=== PATIENT | female | born 1995 | race Caucasian/White ===

== ENCOUNTER → 2019-11-30 11:52 | Outpatient (BNVA) | payer OTHER, SELFPAY | PROVIDERS: Family Provider Family Medicine; PCP Family Medicine; Visit Provider Nurse Practitioner Women's Health | DX: Z34.90 Encounter for supervision of normal pregnancy, unspecified, unspecified trimester (principal) | CPT/HCPCS: 81003; 82950; 84315; 85025 ==

== ENCOUNTER → 2019-12-18 09:42 | Outpatient (BNVA) | payer OTHER, SELFPAY | PROVIDERS: Family Provider Family Medicine; PCP Family Medicine; Visit Provider Obstetrics & Gynecology | DX: Z01.818 Encounter for other preprocedural examination (principal) | CPT/HCPCS: 84315 ==

== ENCOUNTER → 2019-12-29 13:58 | Outpatient (BNVA) | payer OTHER, SELFPAY | PROVIDERS: Family Provider Family Medicine; PCP Family Medicine; Visit Provider Obstetrics & Gynecology | DX: Z01.89 Encounter for other specified special examinations (principal) | CPT/HCPCS: 84315 ==

== ENCOUNTER → 2020-01-12 10:18 | Outpatient (BNVA) | payer OTHER, SELFPAY | PROVIDERS: Family Provider Family Medicine; PCP Family Medicine; Visit Provider Obstetrics & Gynecology | DX: Z01.89 Encounter for other specified special examinations (principal) | CPT/HCPCS: 84315 ==

== ENCOUNTER → 2020-01-30 08:52 | Outpatient (BNVA) | payer OTHER, SELFPAY | PROVIDERS: Family Provider Family Medicine; PCP Family Medicine; Visit Provider Obstetrics & Gynecology | DX: Z34.03 Encounter for supervision of normal first pregnancy, third trimester (principal) | CPT/HCPCS: 84315; 87081 ==

== ENCOUNTER → 2020-02-06 08:21 | Outpatient (BNVA) | payer OTHER, SELFPAY | PROVIDERS: Family Provider Family Medicine; PCP Family Medicine; Visit Provider Obstetrics & Gynecology | DX: Z01.89 Encounter for other specified special examinations (principal) | CPT/HCPCS: 84315 ==

== ENCOUNTER → 2020-02-13 08:52 | Outpatient (BNVA) | payer OTHER, SELFPAY | PROVIDERS: Family Provider Family Medicine; PCP Family Medicine; Visit Provider Obstetrics & Gynecology | DX: Z46.89 Encounter for fitting and adjustment of other specified devices (principal) | CPT/HCPCS: 84315 ==

== ENCOUNTER 2020-02-19 21:52 | Inpatient (IN) | payer OTHER, SELFPAY ==
[2020-02-19 22:00] VITALS: RESP 16; TEMP 36.8
[2020-02-19 22:17] VITALS: BP 171/73; PULSE 109
[2020-02-19 22:26] VITALS: BP 132/76; PULSE 109
[2020-02-19 23:14] VITALS: BMI 38.9
[2020-02-20] VITALS (46 sets, daily range): BP systolic 0–185; BP diastolic 0–95; PULSE 25–133; RESP 16; TEMP 36.8; O2SAT 87–100
--- NOTE | 2020-02-20 02:39 | PC.NURSE ---
25 MCG CYTOTEC PLACED VAGINALLY AT 0103 02/20/20 BY THIS NURSE PER DR ROSALIA MCELROY.
--- NOTE | 2020-02-20 02:40 | PC.NURSE ---
LACTATED RINGERS FLUID BOLUS INITIATED AT 0125 02/20/[address] LINDSEY'S ORDER IN PERIPHERAL IV RIGHT AC. FLUIDS RUNNING AT 999MLS/HR.
--- NOTE | 2020-02-20 02:41 | PC.NURSE ---
LACTATED RINGERS RATE CHANGE, RUNNING AT 75 MLS/HR STARTING AT 0157 02/20/[address] LINDSEY'S ORDERS FOLLOWING FLUID BOLUS COMPLETION.
--- NOTE | 2020-02-20 05:20 | PC.NURSE ---
250 ML/HR BOLUS OF LR INITIATED AT 0448 02/20/[address] LINDSEY ORDER VIA PERIPHERAL IV IN RIGHT AC.
--- NOTE | 2020-02-20 05:21 | PC.NURSE ---
NEW BAG OF LR HUNG AT 0505 02/20/20, AND RATE OF INFUSION CHANGED TO 125 ML/HR PER DR LINDSEY ORDER.
--- NOTE | 2020-02-20 05:21 | PC.NURSE ---
INFUSION RATE OF LR CHANGED TO 999ML/HR AT 0515 02/20/20 FOR PREPARATION OF EPIDURAL PER PROTOCOL.
--- NOTE | 2020-02-20 06:09 | ANES.PREANE2 ---
Pre-Anesthetic Assessment Pre-Anesthetic Assessment: Height/Weight: Height 1.75 m Weight 119.748 kg Temp Pulse Resp BP 98.3 F 82 16 130/57 02/20/20 04:20 02/20/20 06:01 02/20/20 04:20 02/20/20 06:01 Preop Diagnosis: labor Proposed Procedure: epidural Was Beta Francisco Javier taken within 24 hours: N/A Last intake: solid at 0300 Last Intake: 03:00 Social: Social History: No alcohol and No tobacco Exam: Pre-Anes Outpt Exam: alert, oriented x 3, clear to auscultation bilaterally and regular rate & rhythm Airway: Submandibular: WNL Cervical ROM: WNL MP: 2 Dentition: Full Pulmonary: Pulmonary: None reported CV/HEM: CV/HEM: None reported : : None reported Hepatic: Hepatic: None reported GI: GI: GERD Musc/skel: Musc/skel: None reported Neuropsych: Neuropsych: Anxiety and WHITT (monthly) Anesthetic Plan: ASA status: 2 Anesthesia: Anesthesia Evaluation, Eval. 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
--- NOTE | 2020-02-20 06:54 | ANES.PROC ---
Anesthesia Procedures Procedure/Date: 02/20/20 Epidural: Time Out Performed: Yes Consents Signed: Procedure Consent and NPO Consent Consent: requested by attending/covering physician and from patient Lumbar Level: L3-L4 Epidural position: sitting Epidural procedure: sterile prep of area (betadine), 1% lidocaine to numb the area (3ml), 18 g needle, neg for paresthesia, test dose given, 1.5% xylocaine 1:200k epi (5ml), 0.2% Ropivacaine bolus ml (5ml), placed PCEA, no systemic response, sterile dressing applied, L.U.D. no apparent complications and 0.2% Ropiavacaine @ mls/hr (13ml/hr) Other Information: Spoke with pt on risk and benefits of epidural epidural with consent signed. Pt tolerated procedure well and comfortable after
--- NOTE | 2020-02-20 07:35 | PC.NURSE ---
NEW BAG OF LR HUNG AT 0615, SET TO INFUSE AT 125 MLS/HR.
[2020-02-21 11:03] LABS: Hematocrit 33.1 % (37.0-47.0); Hemoglobin 11.1 g/dL (11.5-15.3); Lymphocytes % 19.1 %; Mean Corpuscular HGB Conc 33.5 g/dL (30.0-36.0); Mean Corpuscular Hemoglobin 30.4 pg (28.0-34.0); Mean Corpuscular Volume 90.7 fL (81-99); Mean Platelet Volume 9.7 fL (7.4-10.4); Monocytes % 7.2 %; Neutrophils % 71.5 %; Platelet Count 419 10^3/cmm (130-400); Red Blood Count 3.65 10^6/uL (4.1-5.3); Red Cell Distribution Width 13.3 % (12.1-15.1)
[2020-02-21 11:04] LABS: Basophils % 0.2 %
[2020-02-21 11:05] LABS: Eosinophils # 0.1 10^3/uL (0.0-0.8); Lymphocytes # 2.3 10^3/uL (0.8-4.8); Monocytes # 0.9 10^3/uL (0.2-0.9); Neutrophils # 8.6 10^3/uL (1.8-7.7)
== END 2020-02-20 07:16 | disposition home or self-care (01) | DRG 807 ==
PROVIDERS: Admitting Provider Obstetrics & Gynecology; Family Provider Family Medicine; PCP Family Medicine; Visit Provider Obstetrics & Gynecology
DX: O99.344 Other mental disorders complicating childbirth (principal); Z37.0 Single live birth; F41.9 Anxiety disorder, unspecified; O99.284 Endocrine, nutritional and metabolic diseases complicating childbirth; K21.9 Gastro-esophageal reflux disease without esophagitis; Z3A.39 39 weeks gestation of pregnancy; O26.53 Maternal hypotension syndrome, third trimester; O76 Abnormality in fetal heart rate and rhythm complicating labor and delivery; O69.81X0 Labor and delivery complicated by cord around neck, without compression, not applicable or unspecified; O70.0 First degree perineal laceration during delivery
CPT/HCPCS: 36415; 59025; 85025

== ENCOUNTER 2020-02-20 07:31 | Inpatient (IN) | payer OTHER, SELFPAY ==
[2020-02-20] VITALS (74 sets, daily range): BP systolic 0–149; BP diastolic 0–84; PULSE 63–98; RESP 16–18; TEMP 36.6–37; O2SAT 97–99
--- NOTE | 2020-02-20 07:35 | PC.NURSE ---
4 mg Zofran given IV push for nausea by this nurse at 0709.
--- NOTE | 2020-02-20 07:50 | PC.NURSE ---
SEE OTHER DOCUMENTATION FOR THIS PT LISTED UNDER OTHER ACCOUNT NUMBER, CHARTED ON 02/19/20 AT 2152 UNTIL 02/20/20 AT 0715; [id number]
--- NOTE | 2020-02-20 08:04 | PC.NURSE ---
Dr. Corcoran at bedside at this time. SVE performed by Dr. Corcoran 4-5cm, 80%, -1 station. AROM with scant clear fluid. Received order to start high dose pitocin. Amie Dunn RN
--- NOTE | 2020-02-20 08:20 | PC.NURSE ---
Pitocin started at this time at 2 miliunits/hr per high dose pitocin protocol. Pitocin verified by Joan Penaloza RN. Amie Dunn RN
--- NOTE | 2020-02-20 08:38 | PC.NURSE ---
Pitocin titrated to 4 miliunits/hr per high dose pitocon protocol. Verified by PABLITO Gaxiola RN
--- NOTE | 2020-02-20 08:44 | PC.NURSE ---
Nurse entered room to find FHT. FHT were audibly increased. This nurse called for help. Joan Penaloza RN came in and helped reposition pt. Pt was repositioned left lateral, with no improvement. At 0846 pitocin was titrated down to 2 miliunits. Pt was repositioned right lateral and 15 L O2 was administered via non-rebreather mask. LR fluid bolus was initiated and pitocin was turned off. Dr. Corcoran entered room and was reassuring pt. FSE was placed at 0852 by Joan Penaloza RN. SVE was 6cm, 90%, +1 station. Pt was placed in right lateral peanut ball and heart tones were increasing. Received verbal order from Dr. Corcoran to perform SVE in 30 minutes. Amie Dunn RN
--- NOTE | 2020-02-20 09:02 | PC.NURSE ---
5 mg Reglan given at this time IV push. Given for nausea. Amie Dunn RN
--- NOTE | 2020-02-20 09:04 | PC.NURSE ---
Dr. London notified at this time of BP of 86/36. Orders received to stop epidural pump and give 10mg of ephedrine. Amie Dunn RN
--- NOTE | 2020-02-20 09:05 | PC.NURSE ---
Epidural pump stopped at this time by this nurse. Amie Dunn RN
--- NOTE | 2020-02-20 09:15 | PC.NURSE ---
20mg Ephedrine given IV push at this time by Phillip Gongora CRNA.
--- NOTE | 2020-02-20 09:17 | PC.NURSE ---
Phillip Gongora, DIAZ turned on epidural pump at this time and turned pump on 12mL/hr.
--- NOTE | 2020-02-20 09:26 | PC.NURSE ---
10mg Ephedrine given at this time IV push by Phillip Gongora, GUI DEVELOPER
--- NOTE | 2020-02-20 09:37 | PC.NURSE ---
New bag of 1L LR hung at this time. Running at 125mL/hr. Amie Dunn RN
--- NOTE | 2020-02-20 10:38 | PC.NURSE ---
O2 removed from pt at this time.
--- NOTE | 2020-02-20 13:10 | PC.NURSE ---
Pitocin started at 2 miliunits/hr at this time. Verified by Rosaura Mcclellan RN. Verbal order received by Dr. Corcoran.
--- NOTE | 2020-02-20 13:20 | PC.NURSE ---
Pitocin titrated to 4 milliunits/hr; verified by Rosaura Mcclellan RN. Verbal order received by Dr. Corcoran.
--- NOTE | 2020-02-20 13:53 | PC.NURSE ---
Pitocin started at dose of 600 miliunits/hour for total volume of 200 mL. Verified by Rosaura Mcclellan RN.
--- NOTE | 2020-02-20 14:00 | PC.NURSE ---
Epidural pump stopped at this time.
--- NOTE | 2020-02-20 14:40 | P.PCNOB_ITS ---
Delivery Note: Date of delivery: February 20, 2020 Pre-delivery diagnoses: 24-year-old 1 para 0 at 39 weeks and 6 days GBS negative Anxiety well controlled with citalopram Chronic GERD controlled on medication Obesity Post-delivery diagnoses: Vaginal delivery on 02/20/2020 Procedure: Vaginal delivery Op report anesthesia: Epidural Delivering Physician: Dr. Elicia Corcoran Pre-Delivery Course: Ms. Umaña is 24-year-old 1 para 0 at 39 weeks and 6 days who presented to labor and delivery at 10 PM on 02/19/2020 for scheduled induction of labor for term . She had had an uncomplicated course and had no complaints on arrival. tracing was category 1. She had occasional contractions and cervix was noted to be 4 cm, 60% and -2 station. Induction was started on 02/20/2020 at 1 AM with Cytotec that was placed vaginall y. With this she started to have regular contractions and made some cervical change to 4 to 5 cm. As she was uncomfortable and epidural was placed. After the epidural she was noted to be 4 to 5 cm, 80% and -2 station. Artificial rupture of membranes was performed with clear fluid at 8 AM at which point she was 5 cm, 80% and -1 station. Her contractions spaced out a little and she was restarted on Pitocin titrated to a maximum of 4 mIU. With this she had regular contractions. She had one episode of post epidural hypotension which required ephedrine however once that was done her blood pressure remained stable. - tracing remained largely category 1 except for some late decelerations around the time patient was hypotensive which resolved with IV fluid, ephedrine and position changes. She made good cervical change and was fully dilated at 12:30 AM and +2 station and set up in lithotomy ready to push. She had occasional variables but overall tracing was reassuring. Delivery: She was set up in lithotomy position and was pushing effectively. She was noted to be +3 station and continued pushing well. The head delivered in DELBERT position, loose nuchal cord x1 was present present. The shoulders and rest of the body followed with her next push. The baby's mouth and nose were suctioned , and the baby was placed on the mother's belly. Once cord pulsations stopped the cord was clamped and cut by father of the baby. Placenta delivered spontaneously intact with membranes and was discarded. The fundus was noted to be firm and well contracted. The vagina and cervix were inspected and no cervical or sulcal lacerations were noted. The perineum was intact except for a first-degree vaginal laceration that extended up the right labia. This was repaired with 3-0 Vicryl in a continuous interlocking fashion and good hemostasis and approximation was obtained. Baby girl born at 1:49 PM on 02/20/2020 with 7/7 , weighing 7 pounds 1 ounce, 20 inches long. Placenta was delivered spontaneously intact with membranes at 1:53 PM. Cotyledons were intact , centrally inserted umbilical cord with 3 vessels noted. Estimated blood loss 350 mL. Complications-baby was initially doing well however at about 5 minutes of was noted to be hypoxic with oxygen saturation in the 70s requiring flow by and then CPAP. Blood gases were sent that were normal. Coding Level of Care Code Acute Visitor Services Information Assistant for Francisca Mac
--- NOTE | 2020-02-20 15:15 | PC.NURSE ---
800 mg Motrin given PO, dermoplast given for PRN use at bedside, lanolin ointment given for PRN use at bedside. Pt has difficulty swallowing pills, Motrin pill was cut into 4 equal pieces, one piece fell on floor and was wasted.
--- NOTE | 2020-02-20 15:43 | P.HP_ITS ---
Providers/Chief Complaint Admitting Physician: Elicia Childress MD Primary Care Provider: Geneva Betancourt DO Chief Complaint: Induction HPI REIMBURSEMENT COORDINATOR History of Present Illness Lanie Umaña is a 24 year old female Labs Rubella: Immune RPR: Negative GBS: Negative Medications/Allergies Allergies Allergy/AdvReac Type Severity Reaction Status Date / Time No Known Allergies Allergy Verified 02/13/20 08:51 PFSH REIMBURSEMENT COORDINATOR PFSH: Social History Smoking and tobacco status: former smoker Alcohol intake: never Additional social history: - Drug use: Denies Alcohol use: Denies Tobacco use: Denies 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-?-?-?-?-?-?-?-?- Blood Fun Ht PRES HR MVMT -?-?-?-?-?-?-?-?-?-?- Edema Dilation Effacement -?-?-?-?-?-?-?-?-?-?-?- Station 07/19/19 -?-?-?-?-?-?-?-?-?-?-?- 9w 1d 243 lb (+0 g) 141/71 NEGATIVE NORMAL -?-?-?-?-?-?-?-?-?-?-?-?- NEGATIVE NEGATIVE -?-?-?-?-?-?-?-?-?-?-?-?- BEDSIDE U/S SHOWS CARDIAC AC TIVITY -?-?-?-?-?-?-?-?-?-?- -?-?--?-?-?-?-?-?-?-?-?- 07/25/19 -?-?-?-?-?-?-?-?-?-?-?- 10w 0d 244 lb 8 oz (+680.389 g) 132/78 NORMAL NEGATIVE -?-?-?-?-?-?-?-?-?-?-?-?- NEGATIVE NEGATIVE -?-?-?-?-?-?-?-?-?-?-?-?- 171BPM/ PRESENT BY DOPTONE -?-?-?-?-?-?-?-?-?-?- NEGATIVE -?-?-?-?-?-?-?-?-?-?-?- 08/09/19 -?-?-?-?-?-?-?-?-?-?-?- 12w 1d 244 lb (+453.593 g) 138/70 1+ ALB NORMAL -?-?-?-?-?-?-?-?-?-?-?-?- NEGATIVE -?-?-?-?-?-?-?-?-?-?-?-?- 165BPM/ PRESENT BY DOPTONE -?-?-?-?-?-?-?-?-?-?- NEGATIVE CLOSED UNEFFACED -?-?-?-?-?-?-?-?-?-?-?- 09/08/19 -?-?-?-?-?-?-?-?-?-?-?- 16w 3d 247 lb (+1.814 kg) 136/56 NEGATIVE NORMAL -?-?-?-?-?-?-?--?-?-?-?-?- NEGATIVE -?-?-?-?-?-?-?-?-?-?-?-?- 150BPM/ PRESENT BY DOPTONE -?-?-?-?-?-?-?-?-?-?- NEGATIVE -?-?-?-?-?-?-?-?-?-?-?- 10/09/19 -?-?-?-?-?-?-?-?-?-?-?- 20w 6d 250 lb 6.08 oz (+3.348 kg) 142/68 NORMAL NEGATIVE -?-?-?-?-?-?-?-?-?-?-?-?- NEGATIVE -?-?-?-?-?-?-?-?-?-?-?-?- 153BPM/ PRESENT BY DOPTONE P RESENT -?-?-?-?-?-?-?-?-?-?- NEGATIVE -?-?-?-?-?-?-?-?-?-?-?- 11/01/19 -?-?-?-?-?-?-?-?-?-?-?- 24w 1d 249 lb 3.2 oz (+2.812 kg) 128/70 TRACE ALB NEGATIVE -?-?-?-?-?-?-?-?-?-?-?-?- NEGATIVE -?-?-?-?-?-?-?-?-?-?-?-?- 24 CM 152BPM/ PRESENT BY DOPTONE P RESENT -?-?-?-?-?-?-?-?-?-?- NEGATIVE -?-?-?-?-?-?-?-?-?-?-?- 11/30/19 -?-?-?-?-?--?-?-?-?-?-?- 28w 2d 253 lb 9.6 oz (+4.808 kg) 122/78 -?--?-?-?-?-?-?-?-?-?-?-?- -?-?-?-?-?-?-?-?-?-?-?-?- 28CM 154BPM/PRESENT BY [facility] VT ESENT -?-?-?-?-?-?-?-?-?-?- NEGATIVE -?-?-?-?-?-?-?-?-?-?-?- 12/18/19 -?-?-?-?-?-?-?-?-?-?-?- 30w 6d 256 lb 2.08 oz (+5.956 kg) 122/82 -?-?-?-?-?-?-?-?-?-?-?-?- -?-?-?-?-?-?-?-?-?-?-?-?- 34CM 131BPM/ PRESENT BY [facility] RESENT -?-?-?-?-?-?-?-?-?-?- NEGATIVE -?-?-?-?-?-?-?-?-?-?-?- 12/29/19 -?-?-?-?-?-?-?-?-?-?-?- 32w 3d 256 lb 6.08 oz (+6.069 kg) 108/66 NEGATIVE -?-?-?-?-?-?-?-?-?-?-?-?- NEGATIVE -?-?-?-?-?-?-?-?-?-?-?-?- 35CM 164BPM/ PRESENT BY [employer] RESENT -?-?-?-?-?-?-?-?-?-?- NEGATIVE -?-?-?-?-?-?-?-?-?-?-?- 01/07/20 -?-?-?-?-?-?-?-?-?-?-?- 33w 5d -?-?-?-?-?-?-?-?-?-?-?-?- -?-?-?-?-?-?-?-?-?-?-?-?- -?-?-?-?-?-?-?-?-?-?- -?-?-?-?-?-?-?-?-?-?-?- 01/12/20 -?-?-?-?-?-?-?-?-?-?-?- 34w 3d 257 lb (+6.35 kg) 126/78 Trace -?-?-?-?-?-?-?-?-?-?-?-?- Negative -?-?-?-?-?-?-?-?-?-?-?-?- 34 166 -?-?-?-?-?-?-?-?-?-?- -?-?-?-?-?-?-?-?-?-?-?- 01/30/20 -?-?-?-?-?-?-?-?-?-?-?- 37w 0d 264 lb (+9.525 kg) 132/70 Neg (Negativ e) -?-?-?-?-?-?-?-?-?-?-?-?- Norm (Normal) Negative (Negat helene) -?-?-?-?-?-?-?-?-?-?-?-?- Neg (Negative) 38 Cephalic 142 active -?-?-?-?-?-?-?-?-?-?- absent 2 30 -?-?-?-?-?-?-?-?-?-?-?- -2 02/06/20 -?-?-?-?-?-?-?-?-?-?-?- 38w 0d 264 lb (+9.525 kg) 124/68 Neg (Negativ e) -?-?-?-?-?-?-?-?-?-?-?-?- Norm (Normal) Negative (Negat helene) -?-?-?-?-?-?-?-?-?-?-?-?- Trace-inta (Negative) H 38.5 cephalic 151 active -?-?-?-?-?-?--?-?-?-?- absent 2-3 40 -?-?-?-?-?-?-?-?-?-?-?- -2 02/13/20 -?-?-?-?-?-?-?-?-?-?-?- 39w 0d 262 lb (+8.618 kg) 110/70 Neg (Negativ e) -?-?-?-?-?-?-?-?-?-?-?-?- Norm (Normal) Negative (Negat helene) -?-?-?-?-?-?-?-?-?-?-?-?- Neg (Negative) 39 Cephalic 141 active -?-?-?-?-?-?-?-?-?-?- Absent 4 60 -?-?-?-?-?-?-?-?-?-?-?- -2 02/20/20 -?-?-?-?-?-?-?-?-?-?-?- 40w 0d 111/50 0/0 99/52 107/53 0/0 112/50 0/0 110/53 0/0 104/54 0/0 0/0 86/36 96/37 108/46 105/40 94/35 97/30 108/40 114/43 115/44 112/44 115/45 109/46 111/43 113/38 0/0 114/44 0/0 115/42 0/0 62/42 121/44 0/0 114/48 116/47 0/0 121/53 0/0 124/47 0/0 120/53 0/0 121/56 119/59 114/57 125/53 0/0 135/54 0/0 134/65 144/57 140/51 130/58 128/50 115/64 136/53 149/66 137/56 136/59 -?-?-?-?-?-?--?-?-?-?-?-?- -?-?-?-?-?-?-?-?-?-?-?-?- Vertex Vertex Vertex Vertex Vertex Vertex 125 120 125 125 125 135 135 155 120 125 120 120 -?-?-?--?-?-?-?-?-?-?- -?-?-?-?-?-?-?-?-?-?-?- -1 +1 +1 0 +1 +2 02/20/20 -?-?-?-?-?-?-?-?-?-?-?- 40w 0d -?-?-?-?-?-?-?-?-?-?-?-?- -?-?-?-?-?-?-?-?-?-?-?-?- -?-?-?-?-?-?-?-?-?-?- -?-?-?-?-?-?-?-?-?-?-?- Notes Visit Date: 02/20/20 No visit notes to display Visit Date: 02/20/20 No visit notes to display Visit Date: 02/13/20 JEANNINE@ 39w0d----> no complaints; GBS negative; desires elective induction- scheduled for 02/19/2020 at 7 PM; anxiety and GERD controlled on medication; favorable cervix-encourage ambulation Elicia Childress MD on 02/18/20 Visit Date: 02/06/20 JEANNINE@ 38w0d----> GBS negative; no complaints; anxiety and acid reflux controlled with medication; favorable cervix-increase ambulation; will discuss induction at next visit. Elicia Childress MD on 02/10/20 Visit Date: 01/30/20 JEANNINE @ 37w0d-----> did not have a 36-week visit; GBS done today; labor consent signed today; anxiety and acid reflux controlled on medication; weight gain goals reviewed-has done a good job with her weight thus far Elicia Childress MD on 02/06/20 Visit Date: 01/12/20 No visit notes to display Visit Date: 01/07/20 PRELOAD NOTE Sherry Judd RN on 01/07/20 Visit Date: 12/29/19 JEANNINE at 32-3/7 WG. ?No complaints. ? labor precautions discussed. Visit Date: 12/18/19 JEANNINE at 38-6/7 WG. ?Complained of cold - usual course for symptom relief, use of OTC medications discussed. ? labor precautions discussed. ?GCT and hemogram normal. Visit Date: 11/30/19 JEANNINE @ 28.2 WG - Obesity; weight gain has been appropriate so far--total weight gain at this time 10 pounds. - GERD somewhat managed with Dexilant; continue to follow - Anxiety; managed with medication; continue to follow -Repeat ultrasound for nonvisualized anatomy and growth completed on 11/20/2019. ?Cord insertion appears normal; S = D; 16th percentile. ?Fundal height measurement is normal; continue to follow. - labor precautions and kick counts discussed - Discussed and encouraged Tdap by 32 weeks - education classes discussed and encouraged - GCT, CBC today. Visit Date: 11/01/19 JEANNINE @ 24.1 WG - bile dysfunction; questran not helping; she prefers to continue to manage with diet - Anxiety; managed with Celexa; continue to follow - Visualized anatomy appears normal except for nonvisualization of cord insertion site secondary to position. ?Recommend repeat evaluation of growth and anatomy at 26 weeks. - Flu vaccine completed - labor precautions and kick counts discussed. - education classes discussed and encouraged; schedule provided. - Symptomology of late second trimester discussed - CBC, GCT at next visit. - O positive blood type Visit Date: 10/09/19 135/75 REPEAT BP JEANNINE at 20-6/7 WG. ?No complaints. ?Screening ultrasound reviewed. ?Follow- up ultrasound at 26 weeks due to incomplete anatomy screen. Visit Date: 09/08/19 JEANNINE at 16-3/7 WG. ?No complaints. ?Quad screen declined. ?Flu vaccine recommended. ?Ultrasound for anatomic survey in approximately 4 weeks. Visit Date: 08/09/19 OB exam at 12 weeks and 1 day-----> numbness on outer aspect of leg- symptom log encouraged; gonorrhea and Chlamydia done today; Pap smear records requested again; anxiety and GERD controlled on medication; labs within normal limits; quad screen if desires at next visit Visit Date: 07/25/19 Initial OB visit at 10 weeks and 0 days-----> initial counseling done- care, breast-feeding, blood transfusion, contraception discussed; GERD continue current medication; labs drawn; history of anemia-stop ferrous sulfate for now until we reassess CBC; anxiety controlled on Uvtiqj-aacmbpix-pope precautions reviewed; obesity-weight gain discussed-early GCT and TSH done today; declined panorama and cystic fibrosis; Pap smear records requested; gonorrhea and Chlamydia at next visit along with exam Visit Date: 07/19/19 OBI at 10.6 WG--------------> 24 y/o , P:0 with a LMP of 05/04/2019 and a EDC of 02/07/2019. - stomach issues; stopped the Questran approx 3 weeks ago; - nausea; mild; dietary and medical management discussed - anxiety; discussed the risk of cardiac defects in the first trimester; continue for now - Uterine size date discrepancy; heart tones noted by bedside ultrasound however does not appear to be 10 week fetus; early ultrasound for dating. - BMI over 35--- needs early GCT -Ob packet provided. Reviewed routine vist schedule, labs, approved medications in , discussed the importance of avoiding nicotine/alcohol/drugs and the effects this has on her and the , and when to notify the doctor. Medical and obstetrical history reviewed. ? -Continue vitamins. - labs at next visit; discussed NIPT, QUAD, AFP, CF. All questions answered to her satisfaction. Greater than 50% of the visit was spent in counseling and coordinating obstetrical care. Total visit time: 30 minutes. Vitals/I&O/Wt Last Vital Signs Temp 98.6 F 02/20/20 11:13 Pulse 80 02/20/20 15:38 Resp 16 02/20/20 11:13 BP 136/59 02/20/20 15:38 02/20/20 02/20/20 02/20/20 06:59 14:59 22:59 Output Total 1000 / 1000 Balance -1000 / -1000 Physical Exam Urinary Catheter Management^: [place]: Cath Placed During This Visit: yes, but has since been removed by the nurse Reason for Continuing Indwelling Catheter: Other Urinary Catheter Date of Insertion: 02/20/20 Urinary Catheter Time of Insertion: 07:15 Date Urinary Catheter Removed: 02/20/20 Time Urinary Catheter Discontinued: 12:50 Coding Level of Care Code Acute Roof Fitter for Chynag Bubba
--- NOTE | 2020-02-20 15:55 | PC.NURSE ---
Pt in leg stirrups pushing at this time. RN at bedside.
--- NOTE | 2020-02-20 17:45 | PC.NURSE ---
10 mg Colace given PO at this time.
--- NOTE | 2020-02-20 21:34 | PC.NURSE ---
Motrin 800mg given to patient at this time, 2nd nurse verified by Angeles KENNEY
--- NOTE | 2020-02-21 02:31 | PC.NURSE ---
Jenelle with lab called with verbal results from hemagram Hgb 10.8 Hct 31.7
[2020-02-21 03:45] VITALS: BP 128/84; PULSE 82; RESP 18; TEMP 36.7; O2SAT 97
[2020-02-21 05:02] LABS: Hematocrit 31.7 % (37.0-47.0); Hemoglobin 10.8 g/dL (11.5-15.3); Mean Corpuscular HGB Conc 34.1 g/dL (30.0-36.0); Mean Corpuscular Hemoglobin 30.6 pg (28.0-34.0); Mean Corpuscular Volume 89.8 fL (81-99); Mean Platelet Volume 9.2 fL (7.4-10.4); Platelet Count 346 10^3/cmm (130-400); Red Blood Count 3.53 10^6/uL (4.1-5.3); Red Cell Distribution Width 13.2 % (12.1-15.1); White Blood Count 18.9 10^3/uL (4.0-10.0)
--- NOTE | 2020-02-21 07:16 | PC.NURSE ---
[place] booklet given to mother. Mother declined watching video at this time.
--- NOTE | 2020-02-21 07:57 | P.DS_ITS ---
Discharge Providers Date of Admission: 02/20/20 07:31 Date of Discharge: February 21, 2020 Attending Provider at Admission: Elicia Childress MD Attending Provider at Discharge: Elicia Childress MD Primary Care Provider: Geneva Betancourt DO Diagnoses at Discharge Discharge Diagnosis (1) Anxiety: Status: Acute Problem details: Diagnosed in 2016 and controlled on citalopram prior to the . This was managed by her primary care provider (2) Chronic GERD: Status: Acute Problem details: Symptoms controlled on proton pump inhibitors. Diagnosed in 2016 and symptoms controlled during the on proton pump inhibitors. Reason for Visit Reason for Visit: Reason For Visit: Induction Brief History: - Admission diagnosis: 24-year-old 1 para 0 at 39 weeks and 6 days GBS negative Anxiety well controlled with citalopram Chronic GERD controlled on medication Obesity Post-delivery diagnoses: Vaginal delivery on 02/20/2020 Hospital Course Hospital Course: Ms. Umaña is 24-year-old 1 para 0 at 39 weeks and 6 days who presented to labor and delivery at 10 PM on 02/19/2020 for scheduled induction of labor for term . She had had an uncomplicated course and had no complaints on arrival. tracing was category 1. She had occasional contractions and cervix was noted to be 4 cm, 60% and -2 station. Induction was started on 02/20/2020 at 1 AM with Cytotec that was placed vagin ally. With this she started to have regular contractions and made some cervical change to 4 to 5 cm. As she was uncomfortable and epidural was placed. After the epidural she was noted to be 4 to 5 cm, 80% and -2 station. Artificial rupture of membranes was performed with clear fluid at 8 AM at which point she was 5 cm, 80% and -1 station. Her contractions spaced out a little and she was restarted on Pitocin titrated to a maximum of 4 mIU. With this she had regular contractions. She had one episode of post epidural hypotension which required ephedrine however once that was done her blood pressure remained stable. - tracing remained largely category 1 except for some late decelerations around the time patient was hypotensive which resolved with IV fluid, ephedrine and position changes. She made good cervical change and was fully dilated at 12:30 AM and +2 station and set up in lithotomy ready to push. She had occasional variables but overall tracing was reassuring. Discharge Summary: She underwent an uncomplicated vaginal delivery on 02/20/2020. Immediately after delivery the baby developed hypoxia and as there was suspicion for cardiac problems the baby was shifted to [place] about 8 hours after . She was tearful however coping well with this. She did well on day 0 and was ambulating well, tolerating regular diet, voiding freely, passing flatus. Pain was well-controlled with by mouth pain medication. She denied nausea, vomiting, fever, chills, shortness of breath, leg pain. She had moderate vaginal bleeding. On day # 1 she continued to do well with stable vital signs and stable hemoglobin at 10.8. She was discharged home on day 1 in a stable condition about 20 hours after delivery as she wanted to go to [place] to be with her baby. Warning signs for endometritis, mastitis, DVT/PE were reviewed with her. Post delivery activity restrictions were also reviewed with her at all her questions were answered to her satisfaction. Plans on using control pills for contraception which will be started at her visit. -She was encouraged to contact us for any problems with mood especially given the stress of having a baby with potential problems. We will contact her throughout the next couple of weeks to see how she is doing and for an update on baby. Physical Exam Narrative: EXAM NARRATIVE: Gen.: No acute distress Heart: S1-S2 heard, regular rate and rhythm Lungs: Clear to auscultation bilaterally Abdomen: Soft, fundus firm below umbilicus Legs: No calf tenderness, trace pedal edema. Urinary Catheter Management^: [place]: Cath Placed During This Visit: yes, but has since been removed by the nurse Reason for Continuing Indwelling Catheter: Other Urinary Catheter Date of Insertion: 02/20/20 Urinary Catheter Time of Insertion: 07:15 Date Urinary Catheter Removed: 02/20/20 Time Urinary Catheter Discontinued: 12:50 Discharge Data Data Completed and Pending: Labs from last 24 hours 02/21/20 02:30 WBC 18.9 H RBC 3.53 L Hgb 10.8 L Hct 31.7 L MCV 89.8 MCH 30.6 MCHC 34.1 RDW 13.2 Plt Count 346 MPV 9.2 Vitals: Last Vital Signs Temp 98.1 F 02/21/20 03:45 Pulse 82 02/21/20 03:45 Resp 18 02/21/20 03:45 BP 128/84 02/21/20 03:45 Pulse Ox 97 02/21/20 03:45 Discharge Plan Discharge Patient Disposition: Home, Self-Care Condition: Stable Prescriptions: New ibuprofen 800 mg tablet 800 mg PO Q8H Qty: 30 RF: 0 Continued PNV,calcium 72-iron,carb-folic 29 mg iron- 1 mg tablet 1 tab PO QDAY RF: 0 citalopram [Celexa] 20 mg tablet 10 mg PO QDAY RF: 0 cetirizine [Zyrtec] 10 mg tablet 10 mg PO DAILY RF: 0 Dexilant 60 mg capsule,biphase delayed releas 60 mg PO ONCE Qty: 30 RF: 3 Discharge Orders: Discharge Order (Routine); Ordered 02/21/20 Ordered By: Elicia Childress Referrals: Elicia Childress MD [Physician] - (6-week visit) Discharge Diet: Usual diet Discharge Activity: Resume usual activity Patient Instructions: Perineal Care (GEN), Your 's Appearance (GEN), Caring for Your Baby (GEN), OB Discharge Report, OB Food/Drug Interaction Guide, OB Vaginal Deliveries - [facility] Activity Restrictions/Additional Instructions: Pelvic rest for 6 weeks No heavy lifting for 6 weeks Discharge Attestations Time Spent in Discharge Care*: greater than 30 min Specific Discharge Activities: Specific discharge activities: educating patient, educating and/or supporting family/caregiver, discussing with pcp/other providers, discussing with protective services case worker/social workers/dc planners, documenting/other paperwork and evaluating patient/reviewing data Quality Metrics Clinical Quality Measures During this hospital stay, did patient experience: None Coding Level of Care Code Acute Appointment Scheduler for Chg Fwd Diagnoses Anxiety F41.9 Chronic GERD K21.9
[2020-02-21 08:35] VITALS: BP 134/83; PULSE 112; RESP 18; TEMP 36.7; O2SAT 97
== END 2020-02-21 08:52 | disposition home or self-care (01) | DRG 807 ==
PROVIDERS: Admitting Provider Obstetrics & Gynecology; Family Provider Family Medicine; PCP Family Medicine; Visit Provider Obstetrics & Gynecology
DX: O99.344 Other mental disorders complicating childbirth (principal); Z37.0 Single live birth; F41.9 Anxiety disorder, unspecified; O99.284 Endocrine, nutritional and metabolic diseases complicating childbirth; K21.9 Gastro-esophageal reflux disease without esophagitis; Z3A.39 39 weeks gestation of pregnancy; O26.53 Maternal hypotension syndrome, third trimester; O76 Abnormality in fetal heart rate and rhythm complicating labor and delivery; O69.81X0 Labor and delivery complicated by cord around neck, without compression, not applicable or unspecified; O70.0 First degree perineal laceration during delivery
CPT/HCPCS: 12345; 36410; 36415; 51702; 59025; 59409; 85027; 96374; 96375

== ENCOUNTER → 2020-11-04 13:25 | Outpatient (BNVA) | payer OTHER, SELFPAY | PROVIDERS: Family Provider Family Medicine; PCP Family Medicine; Visit Provider Family Medicine | DX: F41.9 Anxiety disorder, unspecified (principal); Z13.6 Encounter for screening for cardiovascular disorders | CPT/HCPCS: 80053; 80061; 84443; 85025 ==

== ENCOUNTER → 2020-11-21 15:50 | Outpatient (BNVA) | payer OTHER, SELFPAY | PROVIDERS: Family Provider Family Medicine; PCP Family Medicine; Visit Provider Obstetrics & Gynecology | DX: Z12.4 Encounter for screening for malignant neoplasm of cervix (principal); Z30.9 Encounter for contraceptive management, unspecified | CPT/HCPCS: 88175 ==

== ENCOUNTER → 2021-07-24 10:19 | Outpatient (BNVA) | payer OTHER, SELFPAY | PROVIDERS: Family Provider Family Medicine; PCP Family Medicine; Visit Provider Nurse Practitioner Family | DX: Z20.822 Contact with and (suspected) exposure to COVID-19 (principal) | CPT/HCPCS: 87635 ==

== ENCOUNTER → 2021-09-14 17:56 | Outpatient (BNVA) | payer OTHER, SELFPAY | PROVIDERS: Family Provider Family Medicine; PCP Family Medicine; Visit Provider Registered Nurse Neonatal Intensive Care | DX: M25.561 Pain in right knee (principal) | CPT/HCPCS: 73562 ==

== ENCOUNTER → 2021-11-03 10:09 | Outpatient (BNVA) | payer OTHER, SELFPAY | PROVIDERS: Family Provider Family Medicine; PCP Family Medicine; Visit Provider Family Medicine | DX: Z13.6 Encounter for screening for cardiovascular disorders (principal) | CPT/HCPCS: 80053; 80061; 85025 ==

== ENCOUNTER → 2022-12-21 07:46 | Outpatient (BNVA) | payer OTHER, SELFPAY | PROVIDERS: Family Provider Family Medicine; PCP Family Medicine; Visit Provider Family Medicine | DX: Z01.89 Encounter for other specified special examinations (principal); Z13.6 Encounter for screening for cardiovascular disorders | CPT/HCPCS: 80053; 83036; 84443; 85025 ==

== ENCOUNTER 2023-01-11 06:19 | Outpatient (CLI) | payer OTHER, SELFPAY ==
--- NOTE | 2023-01-11 06:30 | US_ITS ---
WS: [id number] TRANSVAGINAL PELVIC ULTRASOUND HISTORY: irregular menses COMPARISON: None available. Uterus: 8.5 cm x 4.0 cm x 3.5 cm. Anteverted, normal size. No fibroid. Endometrium: 0.6 cm. Normal homogeneous endometrium. No increased vascularity. Right ovary: 3.0 cm x 2.5 cm x 2.8 cm. Normal size and vascularity, no cystic or solid masses. Laverne us small peripheral follicles but less than 20. Left ovary: 2.9 cm x 2.3 cm x 1.9 cm. Normal size and vascularity, no cystic or solid masses. Numerou s small peripheral follicles but less than 20. No free fluid. US/US transvaginal [id number] IMPRESSION: Normal transvaginal pelvic ultrasound.
== END 2023-01-11 06:20 | disposition home or self-care (01) ==
LOC: RAD 06:21
PROVIDERS: PCP Family Medicine; Visit Provider Family Medicine
DX: N92.6 Irregular menstruation, unspecified (principal)
CPT/HCPCS: 76830; 80053; 83036; 84443; 85025

== ENCOUNTER → 2023-03-31 15:20 | Outpatient (BNVA) | payer OTHER, SELFPAY | PROVIDERS: PCP Family Medicine; Visit Provider Obstetrics & Gynecology | DX: N92.6 Irregular menstruation, unspecified (principal) | CPT/HCPCS: 81025; 84702 ==

== ENCOUNTER 2023-04-02 15:03 | Outpatient (CLI) | payer OTHER, SELFPAY | END 2023-04-02 15:04 | disposition home or self-care (01) | LOC: LAB 15:07 | PROVIDERS: PCP Family Medicine; Visit Provider Obstetrics & Gynecology | DX: N92.6 Irregular menstruation, unspecified (principal) | CPT/HCPCS: 36415; 84702 ==

== ENCOUNTER → 2023-04-05 08:25 | Outpatient (BNVA) | payer OTHER, SELFPAY | PROVIDERS: PCP Family Medicine; Visit Provider Obstetrics & Gynecology | DX: N92.6 Irregular menstruation, unspecified (principal) | CPT/HCPCS: 84702 ==

== ENCOUNTER → 2023-04-30 08:32 | Outpatient (BNVA) | payer OTHER, SELFPAY | PROVIDERS: PCP Family Medicine; Visit Provider Obstetrics & Gynecology | DX: O03.9 Complete or unspecified spontaneous abortion without complication (principal) | CPT/HCPCS: 76817 ==

== ENCOUNTER 2023-05-06 14:13 | Day surgery (SDC) | payer OTHER, SELFPAY ==
[2023-05-05 13:40] VITALS: BMI 36.9
[2023-05-06] VITALS (10 sets, daily range): BP systolic 99–130; BP diastolic 51–101; PULSE 79–116; RESP 15–16; TEMP 36.1–36.9; O2SAT 96–99
[2023-05-06] MEDS: sodium chloride 0.9% 1,000 ML 30 ML IV (14:47)
--- NOTE | 2023-05-06 15:26 | W.PM.OPSUD ---
Surgery/Procedure H&P Update DATE OF PROCEDURE: May 06, 2023 DATE H&P PERFORMED: 04/30/23 CHANGES TO PREVIOUS DOCUMENTATION: none PRIMARY INDICATION FOR PROCEDURE: missed PLANNED PROCEDURE: Operation Date: 05/06/23 15:50 Proposed Procedures p Suction dilation and curettage 75609,O02.1(Not Applicable) - Tray Kuhn MD
--- NOTE | 2023-05-06 15:51 | ANES.PREANE2 ---
Pre-Anesthetic Assessment Height/Weight: Height 1.75 m Weight 113.398 kg Temp Pulse Resp BP Pulse Ox O2 Del Method 98.5 F 116 H 16 123/101 98 Room Air 05/06/23 14:31 05/06/23 14:31 05/06/23 14:31 05/06/23 14:31 05/06/23 14:31 05/06/23 14:31 Operation Date: 05/06/23 15:50 Proposed Procedures p Suction dilation and curettage 41597,O02.1(Not Applicable) - Tray Kuhn MD Familial anesthetic complications: None Was Beta Francisco Javier taken within 24 hours: N/A Was Clonidine taken within 24 hours: N/A Last intake: Intake Last Liquid Date 05/06/23 Last Liquid Time 10:00 Last Solid Date 05/05/23 Last Solid Time 21:30 Social No alcohol and No tobacco Exam alert, oriented x 3, clear to auscultation bilaterally and regular rate & rhythm Airway Submandibular: within normal limits Cervical ROM: within normal limits Mallampati: Class II Dentition: full History/ROS No significant history except as noted and No significant complaints Pulmonary None reported CV/HEM None reported None reported Hepatic None reported GI Gastroesophageal Reflux Disease Metabolic Morbid Obesity [facility] [place] None reported Neuropsych Anxiety Anesthetic Plan ASA status: 2 Anesthesia: Anesthesia Evaluation and General Risk of > 500 ml blood loss (7ml/kg in children): No Medications/Allergies Home Medications Medication Instructions Recorded Confirmed Last Taken Type citalopram 10 mg tablet 10 mg PO QDAY #90 tabs 11/10/22 05/05/23 05/05/23 Rx dexlansoprazole 60 mg 60 mg PO DAILY #90 caps 11/23/22 05/05/23 05/05/23 Rx capsule,biphase delayed release (Dexilant) cetirizine 10 mg tablet (Zyrtec) 10 mg PO DAILY PRN Allergy Symptoms 02/17/23 05/05/23 05/05/23 History vitamin with calcium 1 tab PO DAILY 05/05/23 05/05/23 05/05/23 History no.72-iron 27 mg-folic acid 1 mg tablet ( Vitamins Plus Low Iron) Allergies Allergy/AdvReac Type Severity Reaction Status Date / Time cinnamon Allergy ADR-Itching Verified 04/30/23 11:15 peanut Allergy ALGY-Anaphy Verified 04/30/23 11:15 laxis Current Medications Generic Name Dose Route Start Last Admin Trade Name Tomi PRN Reason Stop Dose Admin Sodium Chloride 1,000 mls @ 30 mls/hr 05/06/23 14:30 05/06/23 14:47 Sodium Chloride 0.9% IV 05/07/23 14:29 30 mls/hr .Q24H JUANIS Administration PFSH Anesthesia Medical History Anxiety Diagnosed in 2016 and controlled on citalopram before during and after the . This was managed by her primary care provider Chronic GERD Symptoms controlled on proton pump inhibitors. Diagnosed in 2015 and symptoms controlled on dexilant No pertinent past medical history Denies diabetes, asthma, hypertension, seizures, DVT/PE PMD: Dr. Betancourt Surgical History History of cholecystectomy [place]---laparoscopic procedure performed in 2014 History of esophagogastroduodenoscopy (EGD) for GERD Family History Father Diabetes Hypertension Grandmother Diabetes maternal Stroke paternal Grandfather CAD (coronary artery disease) maternal Family/Other Ovarian cancer maternal aunt, diagnosed at age 19 Non-Hodgkin lymphoma paternal aunt Thyroid condition maternal aunt Denies family history of Colon cancer Hyperlipidemia Breast cancer Anesthesia complication Uterine cancer Social History Smoking and tobacco status: never smoked Alcohol intake: never Substance/Drug Use: never Data Anesthesia Cardiac Studies: No Data to Display
--- NOTE | 2023-05-06 16:30 | ANE.PACU2 ---
Inpatient post-anesthesia follow up: Airway intact: Yes Vital signs: Temperature 97 F Pulse Rate 86 Respiratory Rate 16 Blood Pressure 128/53 Pulse Oximetry 99 Oxygen Delivery Me thod Room Air Oxygen Flow Rate Fraction of Inspir ed Oxygen Hydration adequate: Yes Nausea and vomiting: No Pain level: 2 Mental status: Baseline
--- NOTE | 2023-05-08 08:19 | PM.OP ---
Operative Report Date of procedure: May 06, 2023 Pre-op diagnosis: missed at 7 weeks gestation Post-op diagnosis: same Post-op findings: products of conception Procedure done: suction curettage of uterus Specimens removed/disposition: products of conception Surgeon: Tray Kuhn MD Anesthesia: General Estimated blood loss (mL): 100 Complications: none Findings: uterus sounded to 10 cm Products of conception Brief History: 27 y.o. at 7 weeks gestation. OB sono showed 7 week intrauterine pole with no heart motion Procedure: Informed consent signed The patient was taken to the operating room.? General anesthesia was induced.? The patient was placed in dorsolithotomy position.? The perineum was prepped and draped in the usual fashion. A bivalve speculum was placed in the vagina.? The anterior lip of the cervix was grasped with a sharp-toothed tenaculum.? The uterus was sounded to 10 cm.? The cervix was seen to be dilated.? A #9 curved suction curette was used to empty the contents of the uterus.? Products of conception were obtained and sent to pathology.? A sharp curette, followed again by the suction curette, were used to evacuate the uterus.? No bleeding was seen.? All instruments were then removed from the uterus, cervix and vagina.? No bleeding was seen from the cervix. The patient was then placed supine, awakened, and taken to the recovery room. Postop condition:? stable EBL:? 100 cc Complications:? none Sponge/instruments? counts correct x two
== END 2023-05-06 17:25 | disposition home or self-care (01) ==
PROVIDERS: PCP Family Medicine; Visit Provider Obstetrics & Gynecology
PROC: (CPT 59820; principal; 2023-05-06 15:40)
DX: O02.1 Missed abortion (principal); K21.9 Gastro-esophageal reflux disease without esophagitis
CPT/HCPCS: 59820; 88305; J0330; J1100; J1200; J1885; J2250; J2405; J2704; J3010; J7030

== ENCOUNTER → 2023-11-29 10:10 | Outpatient (BNVA) | payer OTHER, SELFPAY | PROVIDERS: PCP Family Medicine; Visit Provider Obstetrics & Gynecology | DX: O02.1 Missed abortion (principal) | CPT/HCPCS: 84702 ==

== ENCOUNTER → 2023-12-02 08:00 | Outpatient (BNVA) | payer OTHER, SELFPAY | PROVIDERS: PCP Family Medicine; Visit Provider Obstetrics & Gynecology | DX: O02.1 Missed abortion (principal) | CPT/HCPCS: 84702 ==

== ENCOUNTER 2023-12-06 15:16 | Outpatient (CLI) | payer OTHER, SELFPAY | END 2023-12-06 15:17 | disposition home or self-care (01) | PROVIDERS: PCP Family Medicine; Visit Provider Obstetrics & Gynecology | DX: O02.1 Missed abortion (principal) | CPT/HCPCS: 36415; 84702 ==

== ENCOUNTER → 2023-12-14 13:10 | Outpatient (BNVA) | payer OTHER, SELFPAY | PROVIDERS: PCP Family Medicine; Visit Provider Obstetrics & Gynecology | DX: O02.1 Missed abortion (principal) | CPT/HCPCS: 84702 ==

== ENCOUNTER → 2023-12-22 11:15 | Outpatient (BNVA) | payer OTHER, SELFPAY | PROVIDERS: PCP Family Medicine; Visit Provider Obstetrics & Gynecology | DX: Z36.87 Encounter for antenatal screening for uncertain dates (principal) | CPT/HCPCS: 76817 ==

== ENCOUNTER → 2023-12-30 12:06 | Outpatient (BNVA) | payer OTHER, SELFPAY | PROVIDERS: PCP Family Medicine; Visit Provider Nurse Practitioner Family | DX: J02.9 Acute pharyngitis, unspecified (principal); J06.9 Acute upper respiratory infection, unspecified | CPT/HCPCS: 87880 ==

== ENCOUNTER → 2024-01-12 07:47 | Outpatient (BNVA) | payer OTHER, SELFPAY | PROVIDERS: PCP Family Medicine; Visit Provider Nurse Practitioner Women's Health | DX: Z32.01 Encounter for pregnancy test, result positive (principal) | CPT/HCPCS: 80307; 82950; 84315; 84439; 84443; 84481; 85025; 86592; 86762; 86803; 86850; 86900; 87086; 87340; 87491; 87591; 87806 ==

== ENCOUNTER → 2024-01-31 08:44 | Outpatient (BNVA) | payer OTHER, SELFPAY | PROVIDERS: PCP Family Medicine; Visit Provider Obstetrics & Gynecology | DX: O09.91 Supervision of high risk pregnancy, unspecified, first trimester (principal) | CPT/HCPCS: 84315; 87624 ==

== ENCOUNTER → 2024-04-25 07:58 | Outpatient (BNVA) | payer OTHER, SELFPAY | PROVIDERS: PCP Family Medicine; Visit Provider Obstetrics & Gynecology | DX: Z34.90 Encounter for supervision of normal pregnancy, unspecified, unspecified trimester (principal) | CPT/HCPCS: 82950; 84315 ==

== ENCOUNTER 2024-07-02 19:08 | Outpatient (CLI) | payer OTHER, SELFPAY ==
[2024-07-02 19:13] VITALS: BMI 40.6
[2024-07-02 19:41] VITALS: BP 135/81; PULSE 85
[2024-07-02 19:56] VITALS: BP 135/81; PULSE 88
[2024-07-02 20:18] VITALS: BP 135/81; PULSE 88; RESP 16; TEMP 36.7
== END 2024-07-02 20:18 | disposition home or self-care (01) ==
LOC: OPOB 19:11 → OBGYN 19:12
PROVIDERS: PCP Family Medicine; Visit Provider Obstetrics & Gynecology
DX: O26.899 Other specified pregnancy related conditions, unspecified trimester (principal); Z3A.00 Weeks of gestation of pregnancy not specified; Z91.81 History of falling
CPT/HCPCS: 59025; 99211

== ENCOUNTER → 2024-07-04 10:46 | Outpatient (BNVA) | payer OTHER, SELFPAY | PROVIDERS: PCP Family Medicine; Visit Provider Obstetrics & Gynecology | DX: O09.91 Supervision of high risk pregnancy, unspecified, first trimester (principal) | CPT/HCPCS: 82950 ==

== ENCOUNTER 2024-07-05 17:59 | Observation (INO) | payer OTHER, SELFPAY ==
[2024-07-05] VITALS (36 sets, daily range): BP systolic 114–179; BP diastolic 51–98; PULSE 77–116; RESP 14; TEMP 36.7; BMI 41.0
[2024-07-05] MEDS: NIFEdipine 10 mg Capsule 30 MG PO ×2 (15:49→18:37)
[2024-07-05 16:21] LABS: Basophils % 0.2 %; Eosinophils # 0.1 10^3/uL (0.0-0.8); Eosinophils % 0.8 %; Hematocrit 34.8 % (36-47); Lymphocytes # 1.4 10^3/uL (0.8-4.8); Lymphocytes % 14.9 %; Mean Corpuscular HGB Conc 34.2 g/dL (30-55); Mean Corpuscular Hemoglobin 30.1 pg (27-33); Mean Corpuscular Volume 87.9 fl (85-98); Mean Platelet Volume 9.7 fL (7.4-10.4); Monocytes # 0.7 10^3/uL (0.2-0.9); Monocytes % 6.9 %; Neutrophils # 7.25 10^3/uL (1.8-7.7); Neutrophils % 76.5 %; Nucleated Red Blood Cells % 0 %; Platelet Count 319 10^3/cmm (157-399); Red Blood Count 3.96 10^6/uL (3.85-5.65); Red Cell Distribution Width 14.3 % (12.1-15.1)
[2024-07-05 16:30] LABS: Bilirubin Urine Negative (Negative); Blood Urine Negative (Negative); Glucose Urine UA Negative (Normal); Ketones Urine Trace (Negative); Leukocyte Esterase Urine 2+ (Negative); Nitrate Urine Negative (Negative); Protein Urine Trace (Negative); Specific Gravity, Urine 1.021 (1.005-1.030); Urine Appearance Cloudy (CLEAR); Urine Color Yellow (Yellow); pH Urine 6.5 (5-7)
[2024-07-05 16:39] LABS: Alanine Aminotransferase 8 U/L (0-33); Albumin Level 3.6 g/dL (3.5-5.2); Alkaline Phosphatase 121 U/L (35-105); Anion Gap 18.2 (5-19); Aspartate Amino Transferase 15 U/L (0-32); Blood Urea Nitrogen 4 mg/dL (6-20); Calcium 9.4 mg/dL (8.5-10.5); Carbon Dioxide 20 mmol/L (22-29); Chloride 107 mmol/L (98-107); Creatinine Clr Calc Pharmacy 232.0357; Globulin 2.7 g/dL (1.3-4.6); Glomerular Filtration Rate 143.9 mL/min (90-130); Glucose 127 mg/dL (65-115); Osmolality Calculated 290 mOsm/kg (285-295); Potassium 4.2 mmol/L (3.5-5.1); Sodium 141 mmol/L (136-145); Total Bilirubin 0.3 mg/dL (0.15-1.2); Total Protein 6.3 g/dL (6.6-8.7)
[2024-07-05 17:03] LABS: Urine Creatinine 155 mg/dL (28-217); Urine Protein Random 17 mg/dL
[2024-07-05 17:10] LABS: UPRO/UCREAT Ratio 0.11 mg/mg CR
[2024-07-05 17:20] LABS: UA Manual Slide Review YES; UA Slide Review UA Slide Review Perf
[2024-07-05 17:21] LABS: Add Urine Culture? Yes; Bacteria Urine 2+ /hpf; Calcium Oxalate Crystals Urine 15-25 /hpf; Mucus Urine TRACE /hpf
[2024-07-05] MEDS: nitrofurantoin SR (BID) 100 mg Capsule PO (18:37)
[2024-07-05] MEDS: acetaminophen 325 mg Tablet 650 MG PO (20:48)
[2024-07-05] MEDS: HYDROmorphone 1 mg/mL INJ 1 mL 0.4 MG IVP (22:38)
[2024-07-06] VITALS (40 sets, daily range): BP systolic 112–165; BP diastolic 55–90; PULSE 71–129
[2024-07-06] MEDS: acetaminophen 500 mg Tablet 1000 MG PO (03:06)
[2024-07-06] MEDS: ondansetron 2 mg/ML SDV 2 mL 4 MG IVP (03:13)
[2024-07-06] MEDS: NIFEdipine 10 mg Capsule 30 MG PO (10:09)
[2024-07-06] MEDS: nitrofurantoin SR (BID) 100 mg Capsule PO (10:09)
== END 2024-07-06 12:55 | disposition home or self-care (01) ==
LOC: OPOB 07-06 05:21 → OBGYN 07-06 05:21
PROVIDERS: Admitting Provider Obstetrics & Gynecology; PCP Family Medicine; Visit Provider Obstetrics & Gynecology
DX: O26.899 Other specified pregnancy related conditions, unspecified trimester (principal); Z3A.00 Weeks of gestation of pregnancy not specified; M54.50 Low back pain, unspecified
CPT/HCPCS: 36415; 59025; 80053; 81001; 82570; 84156; 84550; 85025; 87086; 96374; 99211; G0378; J1170; J2405

== ENCOUNTER 2024-07-11 21:12 | Inpatient (IN) | payer OTHER, SELFPAY ==
[2024-07-11] VITALS (20 sets, daily range): BP systolic 142–180; BP diastolic 69–103; PULSE 74–109; RESP 16; BMI 40.3
[2024-07-11 18:50] LABS: Basophils % 0.3 %; Eosinophils # 0.1 10^3/uL (0.0-0.8); Eosinophils % 0.9 %; Hematocrit 36.4 % (36-47); Lymphocytes # 1.7 10^3/uL (0.8-4.8); Lymphocytes % 17.9 %; Mean Corpuscular HGB Conc 34.6 g/dL (30-55); Mean Corpuscular Hemoglobin 30.7 pg (27-33); Mean Corpuscular Volume 88.6 fl (85-98); Mean Platelet Volume 9.9 fL (7.4-10.4); Monocytes # 0.9 10^3/uL (0.2-0.9); Monocytes % 8.7 %; Neutrophils # 6.99 10^3/uL (1.8-7.7); Neutrophils % 71.8 %; Nucleated Red Blood Cells % 0 %; Platelet Count 416 10^3/cmm (157-399); Red Blood Count 4.11 10^6/uL (3.85-5.65); Red Cell Distribution Width 14.1 % (12.1-15.1); White Blood Count 9.74 10^3/uL (3.29-11.43)
--- NOTE | 2024-07-11 21:40 | PM.OBGYHP ---
Providers/Chief Complaint Admitting Physician: Tray Kuhn MD Primary RESIDENTIAL ROOFER HELPER: Tray Kuhn MD Primary Care Provider: Geneva Betancourt DO Chief Complaint: ROM, Breech twins [facility] RESIDENTIAL ROOFER HELPER History of Present Illness Lanie Umaña is a 29 year old female SA1 With dichorionic / diamnionic twins EDC August 08, 2024 At 36 w 0 d Presents to L&D c/o fluid leakage No bleeding, uterine contractions + movements Present Details : 3 Para: 1 Labs Rubella: Immune RPR: Negative GBS: Unknown Medications/Allergies Home Medications Medication Instructions Recorded Confirmed Last Taken Type cetirizine 10 mg tablet (Zyrtec) 10 mg PO DAILY PRN Allergy Symptoms 02/17/23 07/06/24 07/05/24 06:30 History dexlansoprazole 60 mg See Rx Instructions .Route 12/21/23 07/06/24 07/05/24 06:30 Rx capsule,biphase delayed release .COMPLEX #90 caps vitamin with calcium See Rx Instructions .Route 12/21/23 07/06/24 07/05/24 06:30 Rx no.72-iron 27 mg-folic acid 1 mg .COMPLEX #90 tabs tablet ( Vitamins Plus Low Iron) citalopram 20 mg tablet See Rx Instructions .Route 01/19/24 07/06/24 07/05/24 06:30 Rx .COMPLEX #90 tabs blood sugar diagnostic (Accu-Chek #100 ea 06/02/24 Unknown Rx Guide test strips) blood-glucose meter (Accu-Chek #1 ea 06/02/24 Unknown Rx Guide Glucose Meter) lancets 31 gauge (Comfort Touch #100 ea 06/02/24 Unknown Rx Ultra Thin Lancets) aspirin 81 mg tablet,delayed 81 mg PO DAILY 07/02/24 07/06/24 07/05/24 06:30 History release acetaminophen 325 mg capsule 325 mg PO Q4H PRN fever or pain 07/06/24 Unknown Rx #60 caps nifedipine 30 mg tablet,extended 30 mg PO BID hypertension #60 tabs 07/06/24 Unknown Rx release Allergies Allergy/AdvReac Type Severity Reaction Status Date / Time cinnamon Allergy ADR-Itching Verified 07/02/24 20:13 peanut Allergy ALGY-Anaphy Verified 07/02/24 20:13 laxis PFS RESIDENTIAL ROOFER HELPER PFSH: Medical History No pertinent past medical history Denies diabetes, asthma, hypertension, seizures, DVT/PE PMD: Dr. Betancourt Chronic GERD Symptoms controlled on proton pump inhibitors. Diagnosed in 2015 and symptoms controlled on dexilant Anxiety Diagnosed in 2016 and controlled on citalopram before during and after the . This was managed by her primary care provider Surgical History History of esophagogastroduodenoscopy (EGD) for GERD History of cholecystectomy [place]---laparoscopic procedure performed in 2014 Family History Father Diabetes Hypertension Grandmother Diabetes maternal Stroke paternal Grandfather CAD (coronary artery disease) maternal Family/Other Ovarian cancer maternal aunt, diagnosed at age 19 Non-Hodgkin lymphoma paternal aunt Thyroid disease maternal aunt Denies family history of Colon cancer Hyperlipidemia Breast cancer Anesthesia complication Uterine cancer Social History Smoking and tobacco/nicotine status: never used tobacco/nicotine Alcohol intake: never Substance/Drug Use: never Other Female Reproductive History: Hx Age of Menarche: 11 History History History 3 Term 1 0 Miscarriages/Ectopic 1 Living Children 1 Care CAITLYN Calculator Estimated Delivery Date Method Current WG Current Estimate 08/08/24 Ultrasound #1 36w 1d # 2 Vitals/I&O/Wt Last Vital Signs Temp 98.2 F 07/12/24 01:53 Pulse 85 07/12/24 15:06 Resp 17 07/12/24 08:22 BP 139/73 07/12/24 15:06 Pulse Ox 100 07/12/24 01:53 O2 Del Method Room Air 07/11/24 19:01 07/12/24 07/12/24 07/12/24 06:59 14:59 22:59 Intake Total 1999 / 1999 500 / 500 Output Total 1850 / 1850 250 / 250 250 / 500 Balance 150 / 150 250 / 250 -250 / 0 Weight last 48 hrs Weight 273 lb Physical Exam Narrative: Weight 273 lbs; 5?9? VS normal General: comfortable, awake, alert Lungs: clear Cor: RRR Sono by me: twins Breech / breech + heart motion x two + movements x two Normal ARIK x two Perineum: + gross rupture of clear amniotic fluid Ext: no edema Urinary Catheter Management: [place]: Cath Placed During This Visit: yes Reason for Continuing Indwelling Catheter: Required Immobilization for Trauma or Surgery or Anesthesia Urinary Catheter Date of Insertion: 07/12/24 Urinary Catheter Time of Insertion: 00:00 Data 07/12/24 13:24 Results Labs OB ([facility]): Blood Type O Positive 07/11/24 Antibody Screen Negative 07/11/24 Hct 27.8 % (36-47) L 07/12/24 Hgb 9.20 g/dL (11.27-16.99) L 07/12/24 Rho(D) Type Rh positive 07/11/24 Plt Count 302 10^3/cmm (157-399) 07/12/24 Hep Bs Antigen Non-reactive (Nonreactive) 01/12/24 Hepatitis C Antibody Non-reactive (Nonreactive) 01/12/24 Rubella IgG Antibody 193.9 IU/mL (0.0-10.0) H 01/12/24 RPR Nonreactive (Nonreactive) 01/12/24 HIV 1&2 Ab & HIV 1 Ag Non-reactive (Non-Reactiv) 01/12/24 TSH 1.04 uIU/mL (0.27-4.20) 01/12/24 Free T4 1.21 ng/dL (0.82-1.77) 01/12/24 C.trachomatis RNA (TMA) Not detected (NOT DETECTED) 01/12/24 N.gonorrhoeae RNA (TMA) Not detected (NOT DETECTED) 01/12/24 T. vaginalis Amp RNA Not detected (NOT DETECTED) 01/12/24 Chlamydia/GC Comment See note 01/12/24 Glucose 1 Hr 50 gm 119 mg/dL (85-140) 04/25/24 Gest Glucose Tolerance 124 mg/dL (70-139) 07/04/24 Hemoglobin A1c 4.9 % (4.0-6.0) 12/21/22 Uric Acid 6.0 mg/dL (2.4-5.7) H 07/05/24 Ser , Semi-Qnt 93923.00 mIU/mL 12/14/23 HCG, Qual Positive (Negative) H 03/31/23 Urine Opiates Screen Negative ng/mL (Negative) 01/12/24 Ur Barbiturates Screen Negative ng/mL (Negative) 01/12/24 Ur Phencyclidine Scrn Negative ng/mL (Negative) 01/12/24 Ur Amphetamines Screen Negative ng/mL (Negative) 01/12/24 U Benzodiazepines Scrn Negative ng/mL (Negative) 01/12/24 Urine Cocaine Screen Negative ng/mL (Negative) 01/12/24 U Marijuana (THC) Screen Negative ng/mL (Negative) 01/12/24 Micro Urine Specimen 07/05/24 Pap Smear Interpret See note 01/31/24 A&P Assessment and plan (1) Dichorionic diamniotic twin gestation: 36 w 0 d Di/di twins Spontaneous rupture of membranes Breech / breech Will proceed with for delivery procedure and risks explained to patient risks include, but not limited to, infection, bleeding, injury to internal organs, anesthesia, blood transfusions patient understands and wants to proceed Desires permanent sterilization Options of OCs, DMPA, nexplanon, IUD discussed Patient does not want reversible control Patient adamant re permanent sterilization Understands irreversibility of procedure Procedure of bilateral partial salpingectomy explained Including risks of infection; bleeding; injury to internal organs, such as bowel, bladder, blood vessels; anesthesia; blood transfusions Patient understands and wants to proceed Qualifiers: Trimester: first trimester Qualified Code(s): O30.041 - Twin , dichorionic/diamniotic, first trimester Attestations Medical Necessity Statement*: patient with twins, at 36 weeks, presents with spontaneous rupture of membranes Coding Level of Care Code Acute Code for Chg Fwd Diagnoses Dichorionic diamniotic twin in first trimester O30.041 Trimester: first trimester Time Spent (min) 60
[2024-07-11] MEDS: lactated ringers 1,000 ML 999 ML IV (21:52)
--- NOTE | 2024-07-11 22:42 | ANES.PREANE2 ---
Pre-Anesthetic Assessment Height/Weight: Height 5 ft 9 in Weight 273 lb Pulse BP 93 143/76 07/11/24 22:31 07/11/24 22:31 Social No alcohol and No tobacco Exam alert, oriented x 3, clear to auscultation bilaterally and regular rate & rhythm Airway Submandibular: within normal limits Cervical ROM: within normal limits Mallampati: Class III Dentition: full Anesthetic Plan ASA status: 2E Anesthesia: Regional (specify below) Other: No prior issues with anesthesia Patient had a send upon around 5 PM today Patient has gestational hypertension, on nifedipine for the past week Takes daily aspirin Chronic GERD, controlled with diet Labs reviewed and acceptable for procedure, platelet 416 Will plan on spinal anesthetic Medications/Allergies Home Medications Medication Instructions Recorded Confirmed Last Taken Type cetirizine 10 mg tablet (Zyrtec) 10 mg PO DAILY PRN Allergy Symptoms 02/17/23 07/06/24 07/05/24 06:30 History dexlansoprazole 60 mg See Rx Instructions .Route 12/21/23 07/06/24 07/05/24 06:30 Rx capsule,biphase delayed release .COMPLEX #90 caps vitamin with calcium See Rx Instructions .Route 12/21/23 07/06/24 07/05/24 06:30 Rx no.72-iron 27 mg-folic acid 1 mg .COMPLEX #90 tabs tablet ( Vitamins Plus Low Iron) citalopram 20 mg tablet See Rx Instructions .Route 01/19/24 07/06/24 07/05/24 06:30 Rx .COMPLEX #90 tabs blood sugar diagnostic (Accu-Chek #100 ea 06/02/24 Unknown Rx Guide test strips) blood-glucose meter (Accu-Chek #1 ea 06/02/24 Unknown Rx Guide Glucose Meter) lancets 31 gauge (Comfort Touch #100 ea 06/02/24 Unknown Rx Ultra Thin Lancets) aspirin 81 mg tablet,delayed 81 mg PO DAILY 07/02/24 07/06/24 07/05/24 06:30 History release acetaminophen 325 mg capsule 325 mg PO Q4H PRN fever or pain 07/06/24 Unknown Rx #60 caps nifedipine 30 mg tablet,extended 30 mg PO BID hypertension #60 tabs 07/06/24 Unknown Rx release Allergies Allergy/AdvReac Type Severity Reaction Status Date / Time cinnamon Allergy ADR-Itching Verified 07/02/24 20:13 peanut Allergy ALGY-Anaphy Verified 07/02/24 20:13 laxis Current Medications Generic Name Dose Route Start Last Admin Trade Name Vargheseq PRN Reason Stop Dose Admin Lactated Ringer's 1,000 mls @ 125 mls/hr 07/11/24 18:45 07/11/24 21:52 Lactated Ringers IV 999 mls/hr .Q8H JUANIS Administration PFSH Anesthesia Medical History No pertinent past medical history Denies diabetes, asthma, hypertension, seizures, DVT/PE PMD: Dr. Betancourt Chronic GERD Symptoms controlled on proton pump inhibitors. Diagnosed in 2015 and symptoms controlled on dexilant Anxiety Diagnosed in 2015 and controlled on citalopram before during and after the . This was managed by her primary care provider Surgical History History of esophagogastroduodenoscopy (EGD) for GERD History of cholecystectomy [place]---laparoscopic procedure performed in 2014 Family History Father Diabetes Hypertension Grandmother Diabetes maternal Stroke paternal Grandfather CAD (coronary artery disease) maternal Family/Other Ovarian cancer maternal aunt, diagnosed at age 19 Non-Hodgkin lymphoma paternal aunt Thyroid disease maternal aunt Denies family history of Colon cancer Hyperlipidemia Breast cancer Anesthesia complication Uterine cancer Social History Smoking and tobacco/nicotine status: never used tobacco/nicotine Alcohol intake: never Substance/Drug Use: never Data Anesthesia 07/11/24 18:30 Short CBC 07/11/24 Range/Units 18:30 WBC 9.74 (3.29-11.43) 10^3/uL Hgb 12.60 (11.27-16.99) g/dL Hct 36.4 (36-47) % MCV 88.6 (85-98) fl Plt Count 416 H (157-399) 10^3/cmm Neut % (Auto) 71.8 % Neut # (Auto) 6.99 (1.8-7.7) 10^3/uL Blood Bank 07/11/24 18:30 Blood Type O Positive Rho(D) Type Rh positive Cardiac Studies: No Data to Display
[2024-07-11] MEDS: citric acid-sodium citrate 30 mL UDC PO (23:14)
[2024-07-11] MEDS: metoclopramide 5 mg/mL SDV 2 mL 10 MG IV (23:15)
[2024-07-11] MEDS: famotidine 20 mg/2 mL INJ IVP (23:15)
[2024-07-11] MEDS: ceFAZolin 2,000 mg SDV 2000 MG IVP (23:15)
[2024-07-12] VITALS (21 sets, daily range): BP systolic 120–146; BP diastolic 55–80; PULSE 69–103; RESP 16–17; TEMP 36.7–36.8; O2SAT 98–100
--- NOTE | 2024-07-12 01:50 | P.OP_ITS ---
Operative Report Date of procedure: July 12, 2024 Pre-op diagnosis: 34 w 0 d di-di twins breech / breech presentation spontaneous rupture of membranes desires permanent sterilization Post-op diagnosis: same Post-op findings: clear amniotic fluid fetus A breech fetus B breech normal uterus, tubes, and ovaries Procedure done: primary low-transverse bilateral partial salpingectomy Implants: none Specimens removed/disposition: placenta and cord, discarded bilateral fallopian tube segments, sent to pathology Surgeon: Tray Kuhn MD Anesthesia: Spinal Estimated blood loss (mL): 1,500 Complications: none Findings: clear amniotic fluid fetus A breech fetus B breech normal uterus, tubes, and ovaries Condition: stable Disposition: floor Brief History: 28 y.o. SA1 With dichorionic / diamnionic twins At 36 w 0 d Presents to L&D with spontaneous rupture of membranes twins breech / breech presentation Procedure: The patient was taken to the operating room and placed supine in the left lateral tilt position. Spinal anesthesia and a nj catheter were already in place. Time-out verification was carried out. The abdomen was prepped and draped in the usual sterile fashion. A Pfannenstiel incision was made and carried down through skin and subcutaneous tissue and fascia. The fascial incision was extended laterally with Chisholm scissors. The fascia was from the underlying rectus muscles. The rectus muscles were split in the midline. The peritoneum was entered bluntly avoiding underlying organs. A bladder flap was created. An Terry-O retractor was placed. A low-transverse uterine incision was made and extended laterally and bluntly avoiding the uterine vessels. Clear amniotic fluid was encountered. Baby A was delivered in breech presentation atraumatically. The baby was suctioned, the cord was clamped and cut and the baby was handed to pediatric staff. Baby B was in a separate amniotic sac. Baby B was delivered in breech presentation atraumatically. The placenta was manually removed intact. The uterine cavity was bluntly curetted with wet laps. The uterine incision was then closed with a continuous interlocking stitch of O-chromic. Adequate hemostasis was seen. Attention was then turned to the bilateral tubal ligation. The left fallopian tube was identified to its fimbrial end. The mid-tube region was grasped with a [place] and an opening was made in the mesosalpinx. The fallopian tube was then ligated proximally and distally with a free tie of 2-O chromic. A 4 cm segment of fallopian tube was excised, including the fimbria, using Metzenbaum scissors. The proximal end was cauterized with the bovie. The right fallopian tube was similarly identified to its fimbrial end. An opening was made in the mesaosalpinx and the right fallopian tube was ligated proximally and distally with a tie of 2-O chromic. A 3 cm segment of fallopian tube was excised, including the fimbria, using Metzenbaum scissors. The proximal end was cauterized with the bovie. No bleeding was seen. Inspection of the uterine incision again showed good hemostasis. The fascia was then closed with a continuous stitch of O-Vicryl. Additional interrupted stitches of O-Vicryl were used for fascial closure. The subcutaneous tissue was irrigated and inspected for hemostasis. The skin was then closed with Insorb alfredito. Postoperative condition: stable EBL: 1500 cc Complications: none Sponge and instruments counts correct x two
--- NOTE | 2024-07-12 01:51 | ANE.PACU2 ---
Inpatient post-anesthesia follow up: Airway intact: Yes Vital signs: Temperature 98.2 F Pulse Rate 82 Respiratory Rate 17 Blood Pressure 142/72 Pulse Oximetry 100 Oxygen Delivery Me thod Room Air Oxygen Flow Rate Fraction of Inspir ed Oxygen Hydration adequate: Yes Nausea and vomiting: No Pain level: 1 Mental status: Baseline
[2024-07-12] MEDS: dextrose 5%-lactated ringers 1,000 ML 125 ML IV (06:19)
[2024-07-12] MEDS: ketorolac 30 mg/mL INJ IVP ×2 (09:08→14:25)
[2024-07-12] MEDS: PRENATAL VIT NO.130/IRON/FOLIC 1 EACH TABLET PO (09:09)
[2024-07-12] MEDS: HYDROcodone-acetaminophen 5-325 mg Tablet PO ×2 (11:14→21:57)
[2024-07-12] MEDS: sodium chloride 0.9% 500 ML 999 ML IV (13:17)
[2024-07-12 13:58] LABS: Hematocrit 27.8 % (36-47); Mean Corpuscular HGB Conc 33.1 g/dL (30-55); Mean Corpuscular Hemoglobin 30.2 pg (27-33); Mean Corpuscular Volume 91.1 fl (85-98); Mean Platelet Volume 9.9 fL (7.4-10.4); Platelet Count 302 10^3/cmm (157-399); Red Blood Count 3.05 10^6/uL (3.85-5.65); Red Cell Distribution Width 14.2 % (12.1-15.1); White Blood Count 13.42 10^3/uL (3.29-11.43)
[2024-07-13] MEDS: HYDROcodone-acetaminophen 5-325 mg Tablet PO ×3 (02:23→13:24)
[2024-07-13 04:48] VITALS: BP 130/78; PULSE 111; RESP 16; TEMP 37.1; O2SAT 98
[2024-07-13 09:00] VITALS: BP 151/70; PULSE 111
[2024-07-13] MEDS: PRENATAL VIT NO.130/IRON/FOLIC 1 EACH TABLET PO (09:01)
[2024-07-13] MEDS: ferrous sulfate EC 325 mg Tablet PO ×2 (09:01→18:46)
[2024-07-13] MEDS: ibuprofen 800 mg tablet PO ×3 (09:01→20:09)
[2024-07-13 09:10] VITALS: BP 163/73; PULSE 112
[2024-07-13 10:35] VITALS: BP 137/67; PULSE 104
[2024-07-13 15:05] VITALS: BP 138/63; PULSE 97
[2024-07-13] MEDS: docusate sodium 100 mg Capsule PO (18:46)
[2024-07-13 22:11] VITALS: BP 145/81; PULSE 107; RESP 16; TEMP 36
[2024-07-14] MEDS: HYDROcodone-acetaminophen 5-325 mg Tablet PO (01:31)
[2024-07-14 04:00] VITALS: BP 148/87; PULSE 77; RESP 14; TEMP 36.7; O2SAT 97
[2024-07-14] MEDS: PRENATAL VIT NO.130/IRON/FOLIC 1 EACH TABLET PO (08:46)
[2024-07-14] MEDS: ibuprofen 800 mg tablet PO (08:47)
[2024-07-14] MEDS: ferrous sulfate EC 325 mg Tablet PO (08:47)
[2024-07-14] MEDS: docusate sodium 100 mg Capsule PO (08:47)
[2024-07-14 10:21] VITALS: BP 138/78; PULSE 80
[2024-07-14 11:00] VITALS: RESP 16; TEMP 36.8
[2024-07-14 13:10] VITALS: BP 181/81; PULSE 104
[2024-07-14 13:28] VITALS: BP 141/75; PULSE 96
[2024-07-14 14:00] VITALS: BP 141/75; PULSE 96; RESP 16; TEMP 36.7
== END 2024-07-14 14:00 | disposition home or self-care (01) | DRG 785 ==
LOC: OPOB 21:12 → OBGYN 21:12
PROVIDERS: Admitting Provider Obstetrics & Gynecology; PCP Family Medicine; Visit Provider Obstetrics & Gynecology
PROC: (CPT 59514; principal; 2024-07-11 23:25)
DX: O32.1XX1 Maternal care for breech presentation, fetus 1 (principal); O30.043 Twin pregnancy, dichorionic/diamniotic, third trimester; Z3A.36 36 weeks gestation of pregnancy; Z37.2 Twins, both liveborn; O32.1XX2 Maternal care for breech presentation, fetus 2; Z30.2 Encounter for sterilization; O99.344 Other mental disorders complicating childbirth; F41.9 Anxiety disorder, unspecified; O99.62 Diseases of the digestive system complicating childbirth; K21.9 Gastro-esophageal reflux disease without esophagitis
CPT/HCPCS: 36415; 51702; 59025; 59409; 85025; 85027; 86850; 86900; 88302; 98960; 99211; J0690; J1885; J2274; J2405; J2590; J2765; J3010; J3490; J7030; J7040; J7120; J7121

== ENCOUNTER 2024-09-27 08:47 | Outpatient (CLI) | payer OTHER, SELFPAY ==
[2024-09-27 09:16] LABS: Basophils # 0.1 10^3/uL (0.0-0.1); Basophils % 0.7 %; Eosinophils # 0.2 10^3/uL (0.0-0.8); Eosinophils % 2.5 %; Hematocrit 38.5 % (36-47); Lymphocytes % 24.7 %; Mean Corpuscular HGB Conc 32.5 g/dL (30-55); Mean Corpuscular Hemoglobin 27.7 pg (27-33); Mean Corpuscular Volume 85.4 fl (85-98); Mean Platelet Volume 8.6 fL (7.4-10.4); Monocytes # 0.5 10^3/uL (0.2-0.9); Monocytes % 6.5 %; Neutrophils % 65.2 %; Nucleated Red Blood Cells % 0 %; Platelet Count 425 10^3/cmm (157-399); Red Blood Count 4.51 10^6/uL (3.85-5.65); White Blood Count 8.13 10^3/uL (3.29-11.43)
[2024-09-27 09:48] LABS: Alanine Aminotransferase 46 U/L (0-33); Albumin Level 4.2 g/dL (3.5-5.2); Alkaline Phosphatase 77 U/L (35-105); Aspartate Amino Transferase 33 U/L (0-32); Blood Urea Nitrogen 9 mg/dL (6-20); Calcium 9.2 mg/dL (8.5-10.5); Carbon Dioxide 25 mmol/L (22-29); Chloride 103 mmol/L (98-107); Chol HDL Ratio 3.85 mg/dL (0.0-4.40); Cholesterol 154 mg/dL (0-200); Free T4 Free Thyroxine 1.12 ng/dL (0.82-1.77); Globulin 2.9 g/dL (1.3-4.6); Glomerular Filtration Rate 116.6 mL/min (90-130); Glucose 85 mg/dL (65-115); HDL Cholesterol 40 mg/dL (60-100); LDL Cholesterol Calculated 80 mg/dL (50-129); Osmolality Calculated 284 mOsm/kg (285-295); Sodium 138 mmol/L (136-145); Thyroid Stimulating Hormone 1.16 uIU/mL (0.27-4.20); Total Bilirubin 0.7 mg/dL (0.15-1.2); Total Protein 7.1 g/dL (6.6-8.7); Triglycerides 171 mg/dL (0-150)
== END 2024-09-27 08:48 | disposition home or self-care (01) ==
LOC: LAB 08:48
PROVIDERS: PCP Family Medicine; Visit Provider Family Medicine
DX: I10 Essential (primary) hypertension (principal)
CPT/HCPCS: 36415; 80053; 80061; 84439; 84443; 85025

== ENCOUNTER → 2025-10-06 10:37 | Outpatient (BNVA) | payer OTHER, SELFPAY | PROVIDERS: PCP Family Medicine; Visit Provider Emergency Medicine | DX: J06.9 Acute upper respiratory infection, unspecified (principal); J02.9 Acute pharyngitis, unspecified; N12 Tubulo-interstitial nephritis, not specified as acute or chronic | CPT/HCPCS: 87071; 87400; 87426; 87880 ==